=== PATIENT | female | born 1970 | race Caucasian/White ===

== ENCOUNTER 2017-01-17 10:19 | Inpatient (IN) | payer OTHER ==
[~2017-01-17] VITALS: Ht 172.7 cm; Wt 77.1 kg
--- NOTE | ~2017-01-17 | HC ---
[facility] [place] [address] CONSULTATION Name: RAMIRO KEMP Room #: 448-P [facility] IN M.R.#: [id number] Admission: 01/17/17 Attend Phys: Valdez Alvarado MD Discharge: Date of : 74 Report #: [id number] THIS REPORT FOR: //name// CC: TIFFANIE physician/PCP Valdez Alvarado WOUND CARE CONSULTATION HISTORY OF PRESENT ILLNESS: The patient presents through the Emergency Department for complaints of bilateral forearm abscesses. The patient states these have been present for the past 3 weeks. The patient was admitted to the Emergency Department and was taken to the operating room yesterday, where she had incision and drainage of both forearms and antecubital fossae. The patient has a history of IV drug abuse which she says her last injection was approximately one month ago. The patient now complains mainly of postoperative pain in both the regions. We have been asked to assist in the wound care of this patient. PAST MEDICAL HISTORY: Significant for IV drug use and tobaccoism. CURRENT MEDICATIONS: Include Effexor, Adderall, Topamax and clonazepam. The patient also on IV antibiotics. DRUG ALLERGIES: SULFA AND TRAMADOL. SOCIAL HISTORY: The patient smokes one pack of cigarettes daily, occasionally drinks alcohol. Does do IV methamphetamine. FAMILY HISTORY: Not pertinent to current condition. REVIEW OF SYSTEMS: CONSTITUTIONAL: The patient denies fevers or chills. NEUROLOGIC: The patient complains of generalized weakness, but no isolated weakness in the arms or legs. EYES: No complaints. ENT: No complaints. CARDIAC: The patient denies chest pain, palpitations or peripheral edema. RESPIRATORY: The patient denies shortness breath, cough or wheezes. GASTROINTESTINAL: The patient denies nausea, vomiting or abdominal pain. GENITOURINARY: The patient denies urgency or frequency. MUSCULOSKELETAL: No complaints. SKIN: Surgical wounds on both antecubital fossa and forearms. PHYSICAL EXAMINATION: VITAL SIGNS: T-max 36.5, pulse 76, respirations 18 and BP 128/52. GENERAL: This is an alert and oriented x 3, pleasant white female who is in [id number] distress secondary to pain. [facility] [address] [place] [address] CONSULTATION Name: RAMIRO KEMP Room #: 448-P ADM IN M.R.#: [id number] Admission: 01/17/17 Attend Phys: Valdez Alvarado MD Discharge: Date of : 74 Report #: [id number] HEENT: Normocephalic, atraumatic. Mucous membranes are dry. Pupils are round. Sclerae white. NECK: Supple and nontender. BACK: Nontender. LUNGS: Clear. HEART: Regular, without murmur. ABDOMEN: Soft, nontender, without organomegaly. EXTREMITIES: The patient moves all extremities without difficulty. Evaluation of bilateral antecubital fossae and forearms reveals surgical packing to be in place in the antecubital fossa with circular drains noted in both these areas to keep the tracts open. There is fairly significant induration, swelling and tenderness noted around each of these forearm sites. There is increased warmth, but no signs of actual purulent drainage. There is no odor. Distal neurovascular is intact in both upper and lower extremities. NEUROLOGIC: Cranial nerves 2-12 are grossly intact. Motor and sensory grossly intact. LABORATORY DATA: White count 7.6, hemoglobin 11.1. Albumin slightly low at 3.2. IMPRESSION: 1. Bilateral forearm and antecubital fossa abscesses secondary to IV drug abuse. 2. History of IV drug abuse. 3. Protein-calorie malnutrition - moderate with albumin of 3.2. 4. Generalized debility. PLAN: At this time, we will give the patient a single dose of IV Dilaudid with each dressing change, which will be done once daily. We will start using gentamicin and moistened iodoform gauze packed into the wounds once again once daily. The patient will need to continue this as an outpatient. The patient is going to continue all IV antibiotics at this time per Infectious Disease. We will maximize the patient's to oral supplementation of protein for healing. We will also try to maximize the patient's physical and occupational therapy for strengthening. I appreciate the ability to consult. We will continue to follow the patient. By: [id number] Thanh Mallory MD /nt
[~2017-01-17 10:19] MED LIST: NORCO 5-325 TA1 EACH PO
[2017-01-17 10:21] VITALS: BP 121/70
[2017-01-17 11:22] LABS: ABSOLUTE NEUTROPHILS 5.4 thou/uL (1.4-8.2); BASOPHILS 0.5 % (0.0-2.0); EOSINOPHILS 4.1 % (0.0-3.0); HEMATOCRIT 36.5 % (37.0-47.0); HEMOGLOBIN 12.4 gm/dL (12.0-15.0); LYMPHOCYTES 20.5 % (24.0-44.0); MCV 88.5 fL (80.0-100.0); MONOCYTES 5.8 % (1.0-8.0); PLATELET COUNT 236 thou/uL (150-400); POLYS 69.1 % (36.0-66.0); RBC 4.13 mil/uL (4.20-5.00); RDW 14.5 % (10.5-14.5); WBC 7.8 thou/uL (4.0-11.0)
[2017-01-17 11:23] LABS: MANUAL DIFF NO
[2017-01-17 11:43] LABS: ANION GAP 9 mmol/L (7-16); BUN 14 mg/dL (7-18); CALCIUM 8.9 mg/dL (8.5-10.1); CHLORIDE 104 mmol/L (98-107); CO2 26 mmol/L (21-32); CREATININE 0.6 mg/dL (0.6-1.0); GLUCOSE 122 mg/dL (74-106); POTASSIUM 4.2 mmol/L (3.5-5.1); SODIUM 139 mmol/L (136-145)
[2017-01-17 11:47] LABS: ALBUMIN 3.2 g/dL (3.4-5.0); ALKALINE PHOSPHATASE 107 U/L (46-116); DIRECT BILIRUBIN < 0.1 mg/dL (<0.1-0.3); SGOT 11 U/L (15-37); SGPT 20 U/L (30-65); TOTAL BILIRUBIN 0.1 mg/dL (<0.1-1.0); TOTAL PROTEIN 6.4 g/dL (6.4-8.2)
[2017-01-17 14:29] LABS: URINE BILIRUBIN NEGATIVE (Negative); URINE BLOOD NEGATIVE (Negative); URINE COLOR YELLOW; URINE GLUCOSE-RANDOM* NEGATIVE (Negative); URINE KETONES NEGATIVE (Negative); URINE NITRITE NEGATIVE (Negative); URINE PROTEIN (DIPSTICK) NEGATIVE (Negative); URINE SPECIFIC GRAVITY <= 1.005 (1.003-1.035); URINE UROBILINOGEN 0.2 E.U./dl (0.2-1.0)
[2017-01-17 14:35] LABS: AMP/METHAMP POSITIVE (Negative); BARBITURATES Negative (Negative); BENZODIAZEPINES Negative (Negative); COCAINE Negative (Negative); METHADONE Negative (Negative); OPIATES Negative (Negative); PCP Negative (Negative); THC Negative (Negative)
[2017-01-17 14:40] VITALS: BP 98/52
[2017-01-17 14:54] VITALS: BP 125/73
[2017-01-17 15:48] VITALS: BP 120/61
[2017-01-17] MEDS ORDERED: ADDERALL 10 MG10 MG PO (17:11)
[2017-01-17] MEDS ORDERED: EFFEXOR XR37.5 MG PO (17:11)
[2017-01-17] MEDS ORDERED: TOPAMAX 25 MG T25 M1 PO (17:12)
[2017-01-17] MEDS ORDERED: CLONAZEPAM 1 MG1 M1 PO (17:12)
[2017-01-17 19:27] VITALS: BP 139/66
[2017-01-18 03:06] VITALS: BP 125/61
[2017-01-18 03:25] LABS: HEMATOCRIT 33.2 % (37.0-47.0); HEMOGLOBIN 11.3 gm/dL (12.0-15.0); MCHC 34.1 g/dL (28.0-37.0); RBC 3.78 mil/uL (4.20-5.00); RDW 14.8 % (10.5-14.5); WBC 7.1 thou/uL (4.0-11.0)
[2017-01-18 03:36] LABS: CALCIUM 8.4 mg/dL (8.5-10.1); CREATININE 0.6 mg/dL (0.6-1.0); POTASSIUM 3.8 mmol/L (3.5-5.1)
[2017-01-18 10:08] VITALS: BP 118/81
[2017-01-18 12:34] VITALS: BP 140/82
[2017-01-18 16:08] LABS: HEPATITIS C VIRUS AB <0.1 (0.0-0.9)
[2017-01-18 16:59] LABS: URINE BILIRUBIN NEGATIVE (Negative); URINE BLOOD NEGATIVE (Negative); URINE COLOR YELLOW; URINE GLUCOSE-RANDOM* NEGATIVE (Negative); URINE KETONES NEGATIVE (Negative); URINE NITRITE NEGATIVE (Negative); URINE PROTEIN (DIPSTICK) NEGATIVE (Negative); URINE SPECIFIC GRAVITY 1.015 (1.003-1.035); URINE UROBILINOGEN 0.2 E.U./dl (0.2-1.0)
[2017-01-18 17:38] VITALS: BP 127/67
[2017-01-18 20:20] VITALS: BP 129/70
[2017-01-19 04:12] LABS: HEMATOCRIT 33.3 % (37.0-47.0); HEMOGLOBIN 11.1 gm/dL (12.0-15.0); MCH 29.6 pg (26.0-34.0); MCHC 33.5 g/dL (28.0-37.0); MCV 88.3 fL (80.0-100.0); RBC 3.77 mil/uL (4.20-5.00); RDW 14.6 % (10.5-14.5); WBC 7.6 thou/uL (4.0-11.0)
[2017-01-19 05:36] VITALS: BP 114/64
[2017-01-19 08:39] VITALS: BP 113/57
[2017-01-19 16:34] VITALS: BP 128/52
[2017-01-19 21:20] VITALS: BP 140/58
[2017-01-20 05:20] VITALS: BP 120/51
[2017-01-20 08:00] VITALS: BP 126/78
[2017-01-20] MEDS ORDERED: LINEZOLID600 MG PO (13:49)
[2017-01-20 16:04] VITALS: BP 126/78
[2017-01-20 17:09] VITALS: BP 126/78
== END 2017-01-20 17:00 | disposition home or self-care (01) | DRG 603 ==
LOC: ER 10:19 → 4S 13:49 → EROBS 13:49 → 4S 14:55 → ER 14:55 → 4S 15:35
PROVIDERS: Internal Medicine; Nurse Practitioner; Specialist; Surgery
PROC: B548ZZA Ultrasonography of Superior Vena Cava, Guidance (ICD-10-PCS; 2017-01-17)
PROC: 02HV33Z Insertion of Infusion Device into Superior Vena Cava, Percutaneous Approach (ICD-10-PCS; 2017-01-17)
PROC: 0X990ZZ Drainage of Left Upper Arm, Open Approach (ICD-10-PCS; principal; 2017-01-18)
PROC: 0X980ZZ Drainage of Right Upper Arm, Open Approach (ICD-10-PCS; principal; 2017-01-18)
DX: L03.114 Cellulitis of left upper limb (principal); E44.1 Mild protein-calorie malnutrition; L02.414 Cutaneous abscess of left upper limb; L02.413 Cutaneous abscess of right upper limb; L03.113 Cellulitis of right upper limb; B95.62 Methicillin resistant Staphylococcus aureus infection as the cause of diseases classified elsewhere; F15.10 Other stimulant abuse, uncomplicated; G43.909 Migraine, unspecified, not intractable, without status migrainosus; Z88.2 Allergy status to sulfonamides; Z88.6 Allergy status to analgesic agent; Z68.25 Body mass index [BMI] 25.0-25.9, adult; Z87.891 Personal history of nicotine dependence
CPT/HCPCS: 10100; 27000; 50010; 50101; 50386; 50403; 57091; 62110; 62900; 70005

== ENCOUNTER 2017-01-25 11:31 | Emergency (ER) | payer OTHER ==
[~2017-01-25] VITALS: Ht 167.6 cm; Wt 72.6 kg
[~2017-01-25 11:31] MED LIST changes: +ADDERALL 10 MG10 MG PO; +CLONAZEPAM 1 MG1 M1 PO; +EFFEXOR XR37.5 MG PO; +LINEZOLID600 MG PO; +TOPAMAX 25 MG T25 M1 PO
[2017-01-25] MEDS ORDERED: GENTAMICIN 0.1%15 G2 TOP (13:54)
== END 2017-01-25 14:33 | disposition home or self-care (01) ==
LOC: ER 11:31
DX: Z48.01 Encounter for change or removal of surgical wound dressing (principal); Z76.0 Encounter for issue of repeat prescription; G89.18 Other acute postprocedural pain; Z98.890 Other specified postprocedural states; F41.0 Panic disorder [episodic paroxysmal anxiety]; F32.9 Major depressive disorder, single episode, unspecified; F17.210 Nicotine dependence, cigarettes, uncomplicated; F10.99 Alcohol use, unspecified with unspecified alcohol-induced disorder; Z88.2 Allergy status to sulfonamides; Z88.6 Allergy status to analgesic agent

== ENCOUNTER 2017-09-23 12:58 | Emergency (ER) | payer OTHER ==
[~2017-09-23] VITALS: Ht 170.2 cm; Wt 79.4 kg
[~2017-09-23 12:58] MED LIST changes: +COMPAZINE5 M1 PO; +GENTAMICIN 0.1%15 G2 TOP
[2017-09-23] MEDS ORDERED: VIBRAMYCIN 100100 MG PO (13:26)
== END 2017-09-23 13:42 | disposition home or self-care (01) ==
LOC: ER 12:58
DX: L03.811 Cellulitis of head [any part, except face] (principal); F41.9 Anxiety disorder, unspecified; F32.9 Major depressive disorder, single episode, unspecified; F17.210 Nicotine dependence, cigarettes, uncomplicated; Z88.2 Allergy status to sulfonamides

== ENCOUNTER 2019-03-31 05:43 | Emergency (ER) | payer OTHER ==
[~2019-03-31] VITALS: Ht 170.2 cm; Wt 90.7 kg
[~2019-03-31 05:43] MED LIST changes: +VIBRAMYCIN 100100 MG PO
[2019-03-31 07:44] VITALS: BP 108/66
== END 2019-03-31 07:45 | disposition home or self-care (01) ==
LOC: ER 05:43
DX: S02.2XXA Fracture of nasal bones, initial encounter for closed fracture (principal); F41.0 Panic disorder [episodic paroxysmal anxiety]; F32.9 Major depressive disorder, single episode, unspecified; F17.210 Nicotine dependence, cigarettes, uncomplicated; Z88.6 Allergy status to analgesic agent; Z88.2 Allergy status to sulfonamides; Z98.890 Other specified postprocedural states; Z98.51 Tubal ligation status; Z86.14 Personal history of Methicillin resistant Staphylococcus aureus infection; Y08.89XA Assault by other specified means, initial encounter; Y93.89 Activity, other specified; Y92.89 Other specified places as the place of occurrence of the external cause; Y99.8 Other external cause status